=== PATIENT | female | born 1960 | race Hispanic/Latino ===

== ENCOUNTER 2019-01-08 08:07 | Emergency (ER) | payer BC ==
[2019-01-08] MEDS ORDERED: IPRATROPIUM BROM 0.5MG/2.5ML ONE (08:51)
[2019-01-08] MEDS ORDERED: HYDROCODONE/CHLORPHEN 5 ML/OSYR ONE (08:51)
[2019-01-08] MEDS ORDERED: ALBUTEROL 2.5 MG/3 ML NEB SOL ONE (08:51)
--- NOTE | 2019-01-08 08:54 | RAD REPORT ---
EXAM DESCRIPTION: RAD - Chest Pa And Lat (2 Views) - 01/08/2019 8:47 am CLINICAL HISTORY: COUGH Chest pain. COMPARISON: Chest Pa And Lat (2 Views) dated 07/20/2016 FINDINGS: Reticular markings are mildly prominent bilaterally suggesting reactive airway disease or bronchitis. No focal consolidation typical of pneumonia present. The heart is normal in size. No disp laced fractures.
--- OUTSIDE RECORDS SUMMARY | 2019-01-08 08:59 | XMS REPORT ---
:1960 Author Organization [employer] Care Team Providers Name Role Phone ConyAlejandra Provider Role Unavailable Allergies, Adverse Reactions, Alerts Substance Reaction Event Type N.K.D.A. Info Not Available Non Drug Allergy Problems Problem Type Condition Code Onset Dates Condition Status Assessment Screen for colon cancer Z12.11 Active Assessment Encounter to establish care Z76.89 Active Problem Chronic fatigue R53.82 Active Assessment Screening for cholesterol level Z13.220 Active Assessment Chronic fatigue R53.82 Active Assessment Chronic nonintractable headache, R51 Active unspecified headache type Assessment Family history of diabetes mellitus Z83.3 Active Medications No Known Medications Vital Signs Date/Time: November 15, 2018 BMI 30.50 Index Weight 189 lbs Height 66 in Temperature 98.3 F Blood Pressure Diastolic 80 mm Hg Blood Pressure Systolic 124 mm Hg Results No Known Results Summary Purpose [employer] Submission
--- OUTSIDE RECORDS SUMMARY | 2019-01-08 08:59 | XMS REPORT | Continuity of Care Document ---
:1960 Author Organization Interface Problems Problem Status Onset Classification Date Comments Source Date Reported Screen for colon Active Diagnosis 11/20/2018 Enayet cancer Rahim Encounter to Active Diagnosis 11/20/2018 Enayet establish care Rahim Chronic fatigue Active Problem 11/20/2018 Enayet Rahim Screening for Active Diagnosis 11/20/2018 Enayet cholesterol level Rahim Chronic Active Diagnosis 11/20/2018 Enayet nonintractable Rahim headache, unspecified headache type Family history of Active Diagnosis 11/20/2018 Enayet diabetes mellitus Rahim Medications Medication Details Route Status Patient Ordering Order Source Instructions Provider Date Allergies, Adverse Reactions, Alerts Substance Category Reaction Severity Reaction Status Date Comments Source type Reported N.K.D.A. Adverse Info Not Adverse Active Enayet Reaction Available Reaction 9 Rahim Immunizations Immunization Date Given Site Status Last Updated Comments Source Results Order Results Value Reference Date Interpretation Comments Source Name Range Vital Signs Vital Sign Value Date Comments Source Weight 189 11/15/2018 Enayet Rahim Height 66 11/15/2018 Enayet Rahim Temperature Oral (F) 98.3 F 11/15/2018 Enayet Rahim Diastolic (mm Hg) 80 11/15/2018 Enayet Rahim Systolic (mm Hg) 124 11/15/2018 Enayet Rahim Encounters Location Location Encounter Encounter Reason Attending ADM DC Status Source Details Type Number For Provider Date Date Visit Procedures Procedure Code Date Perfomer Comments Source
[2019-01-08] MEDS ORDERED: predniSONE 20 MG TAB ONE (10:03)
--- NOTE | 2019-01-08 10:11 | EDPHYS ---
Physician Documentation [facility] Name: Marzena Meza Age: 58 yrs Sex: Female : 1960 Arrival Date: 01/08/2019 Time: 08:11 Bed 13 Private MD: ED Physician Paxton Butterfield HPI: 01/08 08:30 This 58 yrs old Female presents to ER via Ambulatory with complaints of Cough, cp Congestion. 08:30 The patient or guardian reports cough, with productive sputum, difficulty breathing. cp Onset: The symptoms/episode began/occurred last week, and became worse 2 day(s) ago, after spraying bed bug spray. Severity of symptoms: in the emergency department the symptoms are unchanged, despite home interventions. Associated signs and symptoms: Pertinent positives: sore throat, Pertinent negatives: chest pain, diarrhea, fever, vomiting. The patient has been recently seen by a physician: out of Town, with similar presenting complaints, was given a prescription for antibiotics. Patient reports she was seen at clinic in [place] on 01-04-2019 and is currently taking Z-camille. presents with similar symptoms. Historical: - Allergies: 08:17 No Known Allergies; aa5 - PMHx: 08:17 None; aa5 - PSHx: 08:17 None; aa5 - Immunization history:: Flu vaccine is not up to date. - Social history:: Smoking status: Patient/guardian denies using tobacco. - Ebola Screening: : No symptoms or risks identified at this time. ROS: 08:35 Constitutional: Negative for body aches, chills, fever, poor PO intake. cp 08:35 Eyes: Negative for injury, pain, redness, and discharge. cp 08:35 ENT: Positive for sore throat, Negative for drainage from ear(s), ear pain, sinus congestion, sinus pain, difficulty swallowing, difficulty handling secretions. 08:35 Cardiovascular: Negative for chest pain, edema. 08:35 Respiratory: Positive for cough, "sounds productive", shortness of breath, wheezing. 08:35 Abdomen/GI: Negative for abdominal pain, nausea, vomiting, and diarrhea, constipation. 08:35 Back: Negative for pain at rest, pain with movement. 08:35 Skin: Negative for rash. 08:35 Neuro: Negative for altered mental status, headache, weakness. 08:35 All other systems are negative. Exam: 08:45 Constitutional: The patient appears in no acute distress, alert, awake, cp non-diaphoretic, non-toxic, well developed, well nourished. 08:45 Head/Face: Normocephalic, atraumatic. cp 08:45 Eyes: Periorbital structures: appear normal, Conjunctiva: normal, no exudate, no injection, Sclera: no appreciated abnormality, Lids and lashes: appear normal, bilaterally. 08:45 ENT: External ear(s): are unremarkable, Ear canal(s): are normal, clear, TM's: bulging, is not appreciated, bilaterally, dullness, bilaterally, erythema, is not appreciated, bilaterally, Nose: is normal, Mouth: Lips: moist, Oral mucosa: moist, Posterior pharynx: Airway: no evidence of obstruction, patent, Tonsils: no enlargement, no exudate, Uvula: midline, swelling, is not appreciated, erythema, that is mild, exudate, is not appreciated. 08:45 Neck: ROM/movement: is normal, is supple, without pain, no range of motions limitations, no meningismus, no nuchal rigidity, Lymph nodes: no appreciated lymphadenopathy. 08:45 Chest/axilla: Inspection: normal, Palpation: is normal, no crepitus, no tenderness. 08:45 Cardiovascular: Rate: normal, Rhythm: regular, Edema: is not appreciated, JVD: is not appreciated. 08:45 Respiratory: the patient does not display signs of respiratory distress, Respirations: labored breathing, that is mild, accessory muscle usage, is absent, intercostal retractions, are absent, tachypnea, is not appreciated, Breath sounds: bronchial sounds, that are mild, are heard diffusely, wheezing: that is mild, is heard diffusely. 08:45 Abdomen/GI: Inspection: abdomen appears normal, Palpation: abdomen is soft and non-tender, in all quadrants. 08:45 Back: pain, is absent, ROM is normal. 08:45 Skin: no rash present. Vital Signs: 08:17 BP 127 / 90; Pulse 74; Resp 20 S; Temp 98.4(O); Pulse Ox 100% on R/A; Pain 0/10; aa5 MDM: 08:23 Patient medically screened. cp 10:10 Data reviewed: vital signs, nurses notes, lab test result(s), radiologic studies, plain cp films. 10:10 Differential Diagnosis: Bronchitis Influenza Asthma Exacerbation Viral Syndrome cp Pneumonia Other reactive airway. Test interpretation: by ED physician or midlevel provider: plain radiologic studies. Counseling: I had a detailed discussion with the patient and/or guardian regarding: the historical points, exam findings, and any diagnostic results supporting the discharge/admit diagnosis, lab results, radiology results, the need for outpatient follow up, a family practitioner, to return to the emergency department if symptoms worsen or persist or if there are any questions or concerns that arise at home. Response to treatment: the patient's symptoms have markedly improved after treatment, and as a result, I will discharge patient. 01/08 08:23 Order name: Influenza Screen (a \\T\\ B); Complete Time: 10:09 01/08 10:09 Interpretation: Reviewed. 01/08 08:23 Order name: Strep; Complete Time: 10:09 01/08 10:09 Interpretation: Reviewed. 01/08 08:24 Order name: XRAY Chest Pa And Lat (2 Views); Complete Time: 09:13 01/08 09:13 Interpretation: Report reviewed. 01/08 09:41 Order name: Throat Culture EDMS Administered Medications: 09:01 Drug: Albuterol - atroVENT (3:1) (2.5 mg - 0.5 mg) 3 ml Route: Nebulizer; aa5 09:50 Follow up: Response: No adverse reaction; Marked relief of symptoms; Wheezing diminishedaa5 09:01 Drug: Tussionex Pennkinetic ER 5 ml Route: PO; aa5 09:50 Follow up: Response: No adverse reaction aa5 09:50 Drug: predniSONE 60 mg Route: PO; aa5 10:20 Follow up: Response: No adverse reaction aa5 Disposition: 01/08/19 10:11 Discharged to Home. Impression: Acute bronchitis. - Condition is Stable. - Discharge Instructions: Acute Bronchitis, Adult. - Prescriptions for Tessalon Perles 100 mg Oral Capsule - take 2 capsule by ORAL route every 8 hours As needed; 20 capsule. Prednisone 20 mg Oral Tablet - take 2 tablet by ORAL route once daily for 5 days; 10 tablet. Albuterol Sulfate 90 mcg/actuation - inhale 1-2 puff by INHALATION route every 4-6 hours; 1 Inhaler. - Medication Reconciliation Form, Thank You Letter, Antibiotic Education, Prescription Opioid Use form. - Follow up: Private Physician; When: 2 - 3 days; Reason: Recheck today's complaints. - Problem is new. - Symptoms have improved. Addendum: 01/13/2019 07:55 Co-signature as Attending Physician, Paxton Butterfield MD. r n Signatures: Dispatcher [employer] EDMS Paxton Butterfield MD MD rn Calderon, Audri, RN RN aa5 Kevan Swanson PA PA cp Corrections: (The following items were deleted from the chart) 01/08 10:22 10:11 01/08/2019 10:11 Discharged to Home. Impression: Acute bronchitis. Condition is aa5 Stable. Forms are Medication Reconciliation Form, Thank You Letter, Antibiotic Education, Prescription Opioid Use. Follow up: Private Physician; When: 2 - 3 days; Reason: Recheck today's complaints. Problem is new. Symptoms have improved. cp
--- NOTE | 2019-01-08 10:11 | ER ---
Nurse's Notes [facility] Name: Marzena Meza Age: 58 yrs Sex: Female : 1960 Arrival Date: 01/08/2019 Time: 08:11 Bed 13 Private MD: Diagnosis: Acute bronchitis Presentation: 01/08 08:15 Presenting complaint: Patient states: runny nose and dry cough. Pt's states "on aa5 Sunday we sprayed the house with bed bug killer and we can't stop coughing from then". Pt reports being seen 01-04-19 in [facility] and prescribed Z-pack, Flonase, and Zyrtec. Pt states "my throat feel irritated and it matt". 08:15 Transition of care: patient was not received from another setting of care. Onset of aa5 symptoms was December 2018. Risk Assessment: Do you want to hurt yourself or someone else? Patient reports no desire to harm self or others. Initial Sepsis Screen: Does the patient meet any 2 criteria? No. Patient's initial sepsis screen is negative. Does the patient have a suspected source of infection? No. Patient's initial sepsis screen is negative. Care prior to arrival: None. 08:15 Method Of Arrival: Ambulatory aa5 08:15 Acuity: WILLIAM 3 aa5 Historical: - Allergies: 08:17 No Known Allergies; aa5 - PMHx: 08:17 None; aa5 - PSHx: 08:17 None; aa5 - Immunization history:: Flu vaccine is not up to date. - Social history:: Smoking status: Patient/guardian denies using tobacco. - Ebola Screening: : No symptoms or risks identified at this time. Screenin:22 Abuse screen: Denies threats or abuse. Nutritional screening: No deficits noted. aa5 Tuberculosis screening: No symptoms or risk factors identified. Fall Risk None identified. Assessment: 08:18 General: Appears uncomfortable, Behavior is calm, cooperative. Pain: Denies pain. aa5 Neuro: Level of Consciousness is awake, alert, obeys commands, Oriented to person, place, time, situation. Cardiovascular: Heart tones S1 S2 present Capillary refill < 3 seconds is brisk in bilateral fingers Rhythm is regular. Respiratory: Reports cough Airway is patent Respiratory effort is even, unlabored, Respiratory pattern is regular, symmetrical, Breath sounds with wheezes bilaterally. Denies shortness of breath. GI: No signs and/or symptoms were reported involving the gastrointestinal system. : No signs and/or symptoms were reported regarding the genitourinary system. EENT: Throat is pink Reports throat irritation. Derm: Skin is pink, warm \\T\\ dry. Musculoskeletal: Range of motion: intact in all extremities. 08:40 Reassessment: Pt in x-ray at this time. . aa5 09:05 Reassessment: Patient is alert, oriented x 3, equal unlabored respirations, skin aa5 warm/dry/pink. 09:50 Reassessment: Patient is alert, oriented x 3, equal unlabored respirations, skin aa5 warm/dry/pink. Wheezing diminished bilaterally, pt states "I feel like I am breathing better". Awaiting flu swab results, pt notified of wait time . 10:20 Reassessment: Patient is alert, oriented x 3, equal unlabored respirations, skin aa5 warm/dry/pink. Patient states feeling better. Vital Signs: 08:17 BP 127 / 90; Pulse 74; Resp 20 S; Temp 98.4(O); Pulse Ox 100% on R/A; Pain 0/10; aa5 ED Course: 08:11 Patient arrived in ED. mr 08:14 Kevan Swanson PA is PHCP. cp 08:14 Paxton Butterfield MD is Attending Physician. cp 08:15 Arm band placed on Patient placed in an exam room, on a stretcher. aa5 08:15 Patient has correct armband on for positive identification. Bed in low position. Call aa5 light in reach. Side rails up X 1. Adult w/ patient. 08:27 Cele Madera, RN is Primary Nurse. aa5 08:33 Triage completed. aa5 08:44 XRAY Chest Pa And Lat (2 Views) In Process Unspecified. EDMS 09:00 Flu and/or RSV swab sent to lab. Strep swab sent to lab. aa5 09:20 No provider procedures requiring assistance completed. aa5 10:20 Patient did not have IV access during this emergency room visit. aa5 Administered Medications: 09:01 Drug: Albuterol - atroVENT (3:1) (2.5 mg - 0.5 mg) 3 ml Route: Nebulizer; aa5 09:50 Follow up: Response: No adverse reaction; Marked relief of symptoms; Wheezing diminishedaa5 09:01 Drug: Tussionex Pennkinetic ER 5 ml Route: PO; aa5 09:50 Follow up: Response: No adverse reaction aa5 09:50 Drug: predniSONE 60 mg Route: PO; aa5 10:20 Follow up: Response: No adverse reaction aa5 Outcome: 10:11 Discharge ordered by MD. cp 10:20 Discharged to home ambulatory, with significant other. aa5 10:20 Condition: improved 10:20 Discharge instructions given to patient, Instructed on discharge instructions, follow up and referral plans. medication usage, Demonstrated understanding of instructions, follow-up care, medications, Prescriptions given X 3. 10:22 Patient left the ED. aa5 Signatures: Dispatcher [employer] ZAHRAA GaganJuliette mr MaderaCele, RN RN aa5 Kevan Swanson PA PA cp Corrections: (The following items were deleted from the chart) 08:35 08:15 Presenting complaint: Patient states: runny nose and dry cough. Pt's aa5 states "on Sunday we sprayed the house with bed bug killer and we can't stop coughing from then". Pt reports being seen 01-04-19 in [facility] and prescribed Z-pack, Flonase, and Zyrtec. aa5
== END 2019-01-08 10:22 | disposition home or self-care (01) ==
LOC: ER 08:07
DX: J20.9 Acute bronchitis, unspecified (principal)
CPT/HCPCS: 71046; 87070; 87081; 87804; 94640; 99284; J7512

== ENCOUNTER 2022-05-05 12:37 | Emergency (ER) | payer OTHER ==
--- OUTSIDE RECORDS SUMMARY | 2022-05-05 14:01 | XMS REPORT | Continuity of Care Document ---
:1960 Author Organization [facility] t Address [address] [place] [address] Care Team Providers Name Role Phone Pcp, Patient Does Not Have A Primary Care Physician [id number] NOLAN WILL Attending Clinician Unavailable Nurse, Adc Pob Immunization Attending Clinician Unavailable Nolan Will DO Attending Clinician ARTHUR MILLER Attending Clinician Unavailable Payers Payer Name Policy Type Policy Number Effective Date Expiration Date S yusuf [facility] [id number] 2015 00:00:00 Problems Condition Condition Condition Status Onset Resolution Last Treating Co mments Source Name Details Category Date Date Treatment Clinician Date Microscopi Microscopi Disease Active U yesica c c 8-24 [place] [facility] Prediabete Prediabete Disease Active U nivers s s 8-24 ity of 00:00: [address] Chest Chest Disease Active Univers discomfort discomfort 8- it y of 00:00: [place] [facility] Fatigue, Fatigue, Disease Active Unive rs unspecifie unspecifie 8-21 it y of d type d type 00:00: [address] Shortness Shortness Disease Active Uni vers of breath of breath 8-21 ity of 00:00: [address] Nausea Nausea Disease Active Univers 8-21 ity of 00:00: [place] [facility] Hair loss Hair loss Disease Active Uni vers 8-21 ity of 00:00: [place] [facility] Foamy Foamy Disease Active Univers urine urine 8-21 ity of 00:00: [place] [facility] Bilateral Bilateral Disease Active Uni vers edema of edema of 8-21 ity of lower lower 00:00: [place] extremity extremity 00 Medi lu[facility] Depression Depressio Diagnosis Active 2022-02-10 Memoria screen n screen 04:10:54 l Active [place] Diagnosis 02/10/2022 Enaliciaet Jerrim BMI BMI Diagnosis Active 2022-02-10 Mem oria 30.0-30.9, 30.0-30.9, 04:10:54 l adult adult Bennett Active Diagnosis 02/10/2022 Nasrin Escobar Neuropathy Neuropath Problem Active 2022-02-10 Memoria y Active 04:10:54 l Problem Bennett 02/10/2022 Nasrin Escobar Screen for Screen Diagnosis Active 2018-11-20 Memoria colon for colon 04:10:26 l cancer cancer Bennett Active Diagnosis 11/20/2018 Nasrin Escobar Encounter Encounter Diagnosis Active 2022-02-10 Memoria to to 04:10:54 l establish establish Herm sebastian care care Active Diagnosis 02/10/2022 Enaliciaet Jerrim Chronic Chronic Diagnosis Active 2022-02-10 Memoria fatigue fatigue 04:10:54 l Active [place] Diagnosis 02/10/2022 Encarlos Guthriem Screening Screening Diagnosis Active 2022-02-10 Memoria for for 04:10:54 l cholestero cholestero He rmann l level l level Active Diagnosis 02/10/2022 Enaliciaet Rahim Chronic Chronic Diagnosis Active 2022-02-10 Memoria nonintract nonintract 04:10:54 l able able [place] headache, headache, unspecifie unspecifie d headache d headache type type Active Diagnosis 02/10/2022 Encarlos Escobar Family Family Diagnosis Active 2022-02-10 Me moria history of history of 04:10:54 l diabetes diabetes [place] n mellitus mellitus Active Diagnosis 02/10/2022 Nasrin Escobar New onset New onset Diagnosis Active 2022-02-10 Memoria headache headache 04:10:54 l Active [place] Diagnosis 02/10/2022 Nasrin Escobar Allergies, Adverse Reactions, Alerts Allergy Allergy Status Severity Reaction(s) Onset Inactive Treating Comm ents Source Name Type Date Date Clinician NO KNOWN Drug Active Univers ALLERGIE Class ity of S [facility] Social History Social Habit Start Date Stop Date Quantity Comments Source Alcohol intake 2017-06-01 2017-06-01 .43 /d [facility] 00:00:00 00:00:00 [facility] Tobacco use and 2015-08-04 2015-08-04 Never used [facility] exposure 00:00:00 00:00:00 [facility] Sex Ass[birth year] [facility] 00:00:00 00:00:00 [facility] Smoking Status Start Date Stop Date Source Never smoker [facility] Medications Ordered Filled Start Stop Current Ordering Indication Dosage Frequency Signature Comments Components Source Medication Medication Date Date Medication? Clinician (SIG) Name Name Cyclobenzap Yes Alejandra 1 tablet M emoria rine HCl 6-03 Cony at bedtime l 00:00: as needed Bennett 00 aspirin 81 2016- Yes [id number] 81mg Take 81 mg Univers mg chewable 0-06 by mouth ity of tablet 11:31: daily. [address] Immunizations Ordered Filled Immunization Date Status Comments Sour e Immunization Name Name SARS-COV-2 COVID-19 2021-07-29 Completed Unive rsity of MODERNA BOOSTER 00:00:00 [facility] VACCINE Branch SARS-COV-2 COVID-19 2020-11-21 Completed Unive rsity of MODERNA VACCINE 00:00:00 [facility] [place] [facility] SARS-COV-2 COVID-19 2020-10-24 Completed Unive rsity of MODERNA VACCINE 00:00:00 [facility] Branch Td 2010-07-27 Completed University of 00:00:00 [facility] Vital Signs Vital Name Observation Time Observation Value Comments Source Weight 2022-01-27 19:30:00 [facility] [place] [facility] Height 2022-01-27 19:30:00 [facility] [place] [facility] Temperature Oral (F) 2022-01-27 19:30:00 97.3 F [facility] [place] [facility] Diastolic (mm Hg) 2022-01-27 19:30:00 Mem orial [place] Systolic (mm Hg) 2022-01-27 19:30:00 Tani rial [place] Weight 2018-11-15 16:00:00 [facility] Height 2018-11-15 16:00:00 [facility] Temperature Oral (F) 2018-11-15 16:00:00 98.3 F [facility] Diastolic (mm Hg) 2018-11-15 16:00:00 Mem orial [place] Systolic (mm Hg) 2018-11-15 16:00:00 Tani rial [place] Procedures Procedure Date / Time Performed Performing Clinician [facility] radha SARS-COV-2 COVID-19 2021-07-29 20:45:22 Doctor Unassigned, No [facility] [place] VACCINE Name Medical Branch BOOSTER,0.25ML,IM (MODERNA) Encounters Start End Encounter Admission Attending Care Care Encounter Source Date/Time Date/Time Type Type Clinicians Facility Department ID 2022-05-05 Outpatient [id number] Memoria 13:49:14 [id number] [place] [id number] 2022-01-27 2022-01-27 Outpatient Inpatient Inpatient [id number] [facility] 14:30:00 14:30:00 Providers Providers al [facility] 2021-07-29 2021-07-29 Outpatient R LAXMI [facility] [id number] Univers 15:20:00 13:21:[address] [facility] 2021-07-29 2021-07-29 Imm/Inj Nurse, Adc Pob Immunization [facility] [id number] Univers 13:21:09 13:21:30 [id number] Maureen KATZ [id number] Hi dical [address] 2020-11-21 2020-11-21 Outpatient [facility] [id number] Univers 15:20:00 15:20:[address] [facility] 2020-10-24 2020-10-24 Outpatient Case MILLER [facility] [id number] Univers 15:05:00 15:05:[address] [facility] 2018-11-15 2018-11-15 Outpatient Inpatient Inpatient [id number] [facility]Clinic 11:00:00 11:00:00 Providers Providers al [facility] Results This patient has no known results.
--- NOTE | 2022-05-05 15:20 | ER ---
Nurse's Notes [facility] Name: Marzena Meza Age: 61 yrs Sex: Female : 1960 Arrival Date: 05/05/2022 Time: 12:39 Bed 9 Private MD: Diagnosis: SARS-associated coronavirus as the cause of diseases classified elsewhere Presentation: 05/05 13:35 Chief complaint: Patient states: I have a sore throat, cough, and body aches for the bm7 last few days. Coronavirus screen: Client presents with at least one sign or symptom that may indicate coronavirus-19. Standard/surgical mask placed on the client. Ebola Screen: No symptoms or risks identified at this time. Initial Sepsis Screen: Does the patient meet any 2 criteria? No. Patient's initial sepsis screen is negative. Does the patient have a suspected source of infection? No. Patient's initial sepsis screen is negative. Risk Assessment: Do you want to hurt yourself or someone else? Patient reports no desire to harm self or others. Onset of symptoms is unknown. 13:35 Method Of Arrival: Ambulatory 7 13:35 Acuity: WILLIAM 4 bm7 Triage Assessment: 13:36 General: Appears in no apparent distress. uncomfortable, Behavior is calm, cooperative, bm7 appropriate for age. Pain: Complains of pain in forehead. EENT: Oral mucosa is moist. Throat is reddened. Neuro: Level of Consciousness is awake, alert, obeys commands. Cardiovascular: No deficits noted. Respiratory: Reports cough that is non-productive, persistent Denies shortness of breath at rest, on exertion. GI: Reports nausea. : No deficits noted. No signs and/or symptoms were reported regarding the genitourinary system. Derm: No deficits noted. No signs and/or symptoms reported regarding the dermatologic system. Musculoskeletal: No deficits noted. No signs and/or symptoms reported regarding the musculoskeletal system. Historical: - Allergies: 13:36 No Known Allergies; bm7 - Home Meds: 13:36 None [Active]; bm7 - PMHx: 13:36 None; bm7 - PSHx: 13:36 None; bm7 - Immunization history:: Adult Immunizations up to date. - Social history:: Smoking status: Patient denies any tobacco usage or history of. Screenin:33 Abuse screen: Denies threats or abuse. Denies injuries from another. Nutritional ss screening: No deficits noted. Tuberculosis screening: Never had TB. Fall Risk None identified. Assessment: 14:33 General: Appears in no apparent distress. comfortable. Neuro: Level of Consciousness is ss awake, alert, obeys commands, Oriented to person, place, time, situation. Respiratory: Respiratory effort is even, unlabored, Respiratory pattern is regular, symmetrical. Derm: Skin is intact, is healthy with good turgor, Skin is pink, warm \T\ dry. normal. Vital Signs: 13:35 BP 124 / 62; Pulse 82; Resp 18; Temp 98.0(TE); Pulse Ox 100% on R/A; Weight 85.28 kg bm7 (R); Height 5 ft. 6 in. (167.64 cm); Pain 2/10; 13:35 Body Mass Index 30.34 (85.28 kg, 167.64 cm) bm7 ED Course: 12:39 Patient arrived in ED. mr 13:03 [facility]C [facility]. snw 13:03 Kevan Mistry MD is Attending Physician. snw 13:30 Kevan Mistry MD is Attending Physician. snw 13:36 Triage completed. bm7 13:36 Arm band placed on right wrist. bm7 13:44 Patient placed in waiting room, Patient notified of wait time. Labs ordered per bm7 protocol. 14:32 Yazmin Heath, RN is Primary Nurse. ss 14:33 Patient has correct armband on for positive identification. Bed in low position. Call ss light in reach. 16:05 No provider procedures requiring assistance completed. Patient did not have IV access ss during this emergency room visit. Administered Medications: 15:45 Drug: Aspirin Chewable Tablet 324 mg Route: PO; merary 16:01 Follow up: Response: No adverse reaction ss 15:45 Drug: ZyrTEC - Cetirizine 10 mg Route: PO; merary 16:01 Follow up: Response: No adverse reaction ss 15:45 Drug: Pepcid (famotidine) 20 mg Route: PO; merary 16:01 Follow up: Response: No adverse reaction ss 16:01 Drug: Vitamin B-12 (cyanocobalamin) 1000 mcg Route: IM; Site: left gluteus; ss 16:01 Follow up: Response: Medication administered at discharge. ss Medication: 14:33 VIS not applicable for this client. ss Outcome: 15:19 Discharge ordered by . snw 16:05 Discharged to home ambulatory, with family. ss 16:05 Condition: good 16:05 Discharge instructions given to patient, family, Instructed on discharge instructions, follow up and referral plans. medication usage, Demonstrated understanding of instructions, follow-up care, medications. 16:06 Patient left the ED. ss Signatures: Kevan Mistry MD MD cha Waters, Shelly, [employer] ARTISTIC DIRECTOR-C [employer] ARTISTIC DIRECTOR-Csnw Juliette Farah Yazmin Heath, RN RN Anna Reno, RN RN bm7 Corrections: (The following items were deleted from the chart) 14:34 14:33 No provider procedures requiring assistance completed. ss ss 14:34 14:33 Patient did not have IV access during this emergency room visit. ss ss
--- NOTE | 2022-05-05 15:20 | EDPHYS ---
Physician Documentation [facility] Name: Marzena Meza Age: 61 yrs Sex: Female : 1960 Arrival Date: 05/05/2022 Time: 12:39 Bed 9 Private MD: ED Physician Kevan Mistry HPI: 05/05 13:41 This 61 yrs old Female presents to ER via Ambulatory with complaints of Flu snw Symptoms. 13:41 The patient or guardian reports cough, flu symptoms, arthralgias, low-grade fever, snw myalgias, headache, sore throat, bodyaches. Onset: The symptoms/episode began/occurred suddenly, 3 day(s) ago. Associated signs and symptoms: Pertinent positives: earache, nausea, rhinorrhea, sore throat. Severity of symptoms: At their worst the symptoms were mild today. The patient has not recently seen a physician, [facility]. Historical: - Allergies: 13:36 No Known Allergies; bm7 - Home Meds: 13:36 None [Active]; bm7 - PMHx: 13:36 None; bm7 - PSHx: 13:36 None; bm7 - Immunization history:: Adult Immunizations up to date. - Social history:: Smoking status: Patient denies any tobacco usage or history of. ROS: 13:41 Eyes: Negative for injury, pain, redness, and discharge. snw 13:41 Neck: Negative for injury, pain, and swelling, Cardiovascular: Negative for chest pain, palpitations, and edema. 13:41 Back: Negative for injury and pain, : Negative for injury, bleeding, discharge, and swelling, MS/Extremity: Negative for injury and deformity, Skin: Negative for injury, rash, and discoloration. 13:41 Constitutional: Positive for malaise. 13:41 ENT: Positive for ear pain, sinus congestion, sore throat. 13:41 Respiratory: Positive for cough, with no reported sputum. 13:41 Abdomen/GI: Positive for nausea. 13:41 Neuro: Positive for headache. Exam: 13:41 Head/Face: Normocephalic, atraumatic. Eyes: Pupils equal round and reactive to light, snw extra-ocular motions intact. Lids and lashes normal. Conjunctiva and sclera are non-icteric and not injected. Cornea within normal limits. Periorbital areas with no swelling, redness, or edema. 13:41 Neck: Trachea midline, no thyromegaly or masses palpated, and no cervical lymphadenopathy. Supple, full range of motion without nuchal rigidity, or vertebral point tenderness. No Meningismus. Chest/axilla: Normal chest wall appearance and motion. Nontender with no deformity. No lesions are appreciated. Cardiovascular: Regular rate and rhythm with a normal S1 and S2. No gallops, murmurs, or rubs. Normal PMI, no JVD. No pulse deficits. Respiratory: Lungs have equal breath sounds bilaterally, clear to auscultation and percussion. No rales, rhonchi or wheezes noted. No increased work of breathing, no retractions or nasal flaring. Abdomen/GI: Soft, non-tender, with normal bowel sounds. No distension or tympany. No guarding or rebound. No evidence of tenderness throughout. Back: No spinal tenderness. No costovertebral tenderness. Full range of motion. Skin: Warm, dry with normal turgor. Normal color with no rashes, no lesions, and no evidence of cellulitis. MS/ Extremity: Pulses equal, no cyanosis. Neurovascular intact. Full, normal range of motion. Neuro: Awake and alert, GCS 15, oriented to person, place, time, and situation. Cranial nerves II-XII grossly intact. Motor strength 5/5 in all extremities. Sensory grossly intact. Cerebellar exam normal. Normal gait. Psych: Awake, alert, with orientation to person, place and time. Behavior, mood, and affect are within normal limits. 13:41 Constitutional: The patient appears alert, awake, anxious. 13:41 ENT: External ear(s): are unremarkable, Ear canal(s): are normal, TM's: erythema, that is moderate, on the left, Nose: is normal, Mouth: is normal, Posterior pharynx: erythema, that is moderate, Voice: is normal. Vital Signs: 13:35 BP 124 / 62; Pulse 82; Resp 18; Temp 98.0(TE); Pulse Ox 100% on R/A; Weight 85.28 kg bm7 (R); Height 5 ft. 6 in. (167.64 cm); Pain 2/10; 13:35 Body Mass Index 30.34 (85.28 kg, 167.64 cm) 7 MDM: 13:03 Patient medically screened. snw 13:46 Data reviewed: vital signs, nurses notes. Data interpreted: Pulse oximetry: on room air snw is 100 %. Interpretation: normal. Counseling: I had a detailed discussion with the patient and/or guardian regarding: the historical points, exam findings, and any diagnostic results supporting the discharge/admit diagnosis, lab results, the need for outpatient follow up, for definitive care, to return to the emergency department if symptoms worsen or persist or if there are any questions or concerns that arise at home. 05/05 13:38 Order name: Flu; Complete Time: 14:19 bm7 05/05 13:38 Order name: Strep; Complete Time: 15:08 [facility] 05/05 15:30 Interpretation: Abnormal: SARSCOV2 RT PCR POSITIVE. snw 05/05 13:41 Order name: SARS-COV-2 RT PCR (Document "Date of Onset" if Symptomatic) snw 05/05 13:41 Order name: Group A Streptococcus Rapid Sc; Complete Time: 14:19 EDMS 05/05 14:17 Order name: Throat Culture EDMS Administered Medications: 15:45 Drug: Aspirin Chewable Tablet 324 mg Route: PO; merary 16:01 Follow up: Response: No adverse reaction ss 15:45 Drug: ZyrTEC - Cetirizine 10 mg Route: PO; merary 16:01 Follow up: Response: No adverse reaction ss 15:45 Drug: Pepcid (famotidine) 20 mg Route: PO; merary 16:01 Follow up: Response: No adverse reaction ss 16:01 Drug: Vitamin B-12 (cyanocobalamin) 1000 mcg Route: IM; Site: left gluteus; ss 16:01 Follow up: Response: Medication administered at discharge. ss Disposition Summary: 05/05/22 15:19 Discharge Ordered Location: Home snw Condition: Stable snw Diagnosis - SARS-associated coronavirus as the cause of diseases classified elsewhere snw Followup: snw - With: Emergency Department - When: As needed - Reason: Worsening of condition Followup: snw - With: Private Physician - When: 2 - 3 days - Reason: Recheck today's complaints, Continuance of care, Re-evaluation by your physician Discharge Instructions: - Discharge Summary Sheet snw - Aspirin and Your Heart snw - COVID-19 snw - 10 Things You Can Do to Manage Your COVID-19 Symptoms at Home - [facility] snw - COVID-19: Quarantine vs. Isolation - [facility] snw - Prevent the Spread of COVID-19 if You Are Sick - [facility] snw Forms: - Medication Reconciliation Form snw - Thank You Letter snw - Antibiotic Education snw - Prescription Opioid Use snw Signatures: Dispatcher [employer] EDMS Kevan Mistry MD MD cha Waters, Shelly, LI-C OUTPATIENT SCHEDULER-Csnw Yazmin Heath, RN RN ss Anna Reno, LC RN bm7 Corrections: (The following items were deleted from the chart) 15:09 15:08 Abnormal: SARSCOV2 RT PCR POSITIVE. snw snw 15:30 15:08 Abnormal. snw snw
[2022-05-05] MEDS ORDERED: FAMOTIDINE 20 MG TAB ONE (15:25)
[2022-05-05] MEDS ORDERED: CETIRIZINE HCL 5 MG TABLET ONE (15:25)
[2022-05-05] MEDS ORDERED: ASPIRIN 81 MG CHEWABLE TABLET ONE (15:25)
[2022-05-05] MEDS ORDERED: CYANOCOBALAMIN 1000MCG/ML INJ IM SCH (16:00)
[2022-05-05 16:47] VITALS: BP 124/62; TEMP 98; O2SAT 100
== END 2022-05-05 16:06 | disposition home or self-care (01) ==
LOC: ER 12:37
DX: U07.1 COVID-19 (principal)
CPT/HCPCS: 87070; 87081; 87804 ×2; 96372; 99283; U0003; J3420